=== PATIENT | female | born 1980 | race Caucasian/White ===

== ENCOUNTER 2016-08-09 08:45 | Emergency (ER) | payer OTHER ==
[2015-09-03 07:51] VITALS: BMI 23.7
[2016-08-09 09:18] LABS: BASOPHILS 0.1 % (0.0-2.0); EOSINOPHILS 0 % (0-7); HEMATOCRIT 35.1 % (36.0-48.0); HEMOGLOBIN 11.7 g/dL (12-16); IMMATURE GRANULOCYTES 0.5 % (0-5); LYMPHOCYTES 5.6 % (15-50); MCH 31.1 pg (26.0-34.0); MCHC 33.3 g/dL (31.0-37.0); MCV 93.4 fL (80.0-100.0); MEAN PLATELET VOLUME 10.6 fL (7.4-10.4); MONOCYTES 2.1 % (2-11); NEUTROPHILS 91.7 % (40-80); PLATELET COUNT 233 10x3/uL (130-400); RBC 3.76 10x6/uL (4.00-5.40); WBC 18.4 10x3/uL (4.8-10.8)
[2016-08-09 09:42] LABS: ALBUMIN 3.7 g/dL (3.4-5.0); ALKALINE PHOSPHATASE 52 U/L (46-116); ALT (SGPT) 20 U/L (10-68); CALC OSMOLALITY 272 mosm/kg (275-300); CALCIUM 8.5 mg/dL (8.5-10.1); CARBON DIOXIDE 21.4 mmol/L (21.0-32.0); CHLORIDE - SERUM 100 mmol/L (98-107); CREATININE - SERUM 0.7 mg/dL (0.6-1.3); GLUCOSE 172 mg/dL (74-106); POTASSIUM - SERUM 3.3 mmol/L (3.5-5.1); SODIUM 135 mmol/L (136-145); UREA NITROGEN 9 mg/dL (7-18); eGFR NON AFRICAN AMERICAN > 90 mL/min (90-120)
[2016-08-09 09:46] LABS: APPEARANCE SLT CLOUDY (CLEAR); COLOR YELLOW (YELLOW); SPECIFIC GRAVITY 1.025 (1.005-1.020)
[2016-08-09 09:47] LABS: BACTERIA MODERATE /hpf (NONE SEEN); BILIRUBIN NEGATIVE (NEGATIVE); GLUCOSE 1000 mg/dL (NEGATIVE); KETONE LARGE mg/dL (NEGATIVE); LEUKOCYTE ESTERASE TRACE (NEGATIVE); MUCUS <1+ /lpf (NONE SEEN); NITRITE NEGATIVE (NEGATIVE); PROTEIN TRACE mg/dL (NEGATIVE); RED CELLS - URINE 0-5 /hpf (0-5); UROBILINOGEN NORMAL (NORMAL); WHITE CELLS - URINE 0-5 /hpf (0-5)
== END 2016-08-09 13:36 | disposition home or self-care (01) ==
LOC: D.ER 08:45
PROVIDERS: Emergency Medicine
DX: R11.10 Vomiting, unspecified (principal); G43.A0 Cyclical vomiting, in migraine, not intractable; Z3A.09 9 weeks gestation of pregnancy

== ENCOUNTER 2016-08-09 14:16 | Inpatient (IN) | payer OTHER ==
[~2016-08-09] VITALS: Ht 162.6 cm; Wt 59.9 kg
[2016-08-09 15:55] LABS: APPEARANCE CLEAR (CLEAR); BILIRUBIN NEGATIVE (NEGATIVE); COLOR YELLOW (YELLOW); GLUCOSE 1000 mg/dL (NEGATIVE); KETONE LARGE mg/dL (NEGATIVE); LEUKOCYTE ESTERASE NEGATIVE (NEGATIVE); NITRITE NEGATIVE (NEGATIVE); PROTEIN TRACE mg/dL (NEGATIVE); SPECIFIC GRAVITY 1.025 (1.005-1.020); UROBILINOGEN NORMAL (NORMAL)
[2016-08-09 16:03] LABS: BACTERIA FEW /hpf (NONE SEEN); EPITHELIAL CELLS 0-5 /hpf (0-5); RED CELLS - URINE 0-5 /hpf (0-5); WHITE CELLS - URINE 0-5 /hpf (0-5)
--- NOTE | 2016-08-09 16:25 | NUR ---
PT LYING SUPINE IN BED. EYES CLOSED. RESP NON-LABORED. PT NOT DISTURBED TO ALLOW FOR REST. SR UP X 2. CALL LIGHT IN REACH. SO IN ROOM WITH PT.
[2016-08-09 19:17] LABS: BASOPHILS 0.1 % (0.0-2.0); EOSINOPHILS 0 % (0-7); HEMOGLOBIN 10.4 g/dL (12-16); IMMATURE GRANULOCYTES 0.4 % (0-5); LYMPHOCYTES 8.7 % (15-50); MCH 31.7 pg (26.0-34.0); MCHC 33.5 g/dL (31.0-37.0); MCV 94.5 fL (80.0-100.0); MEAN PLATELET VOLUME 10.5 fL (7.4-10.4); MONOCYTES 7.8 % (2-11); RBC 3.28 10x6/uL (4.00-5.40); RDW 13.2 % (11.5-14.5); WBC 14.3 10x3/uL (4.8-10.8)
[2016-08-09 19:18] LABS: PLATELET COUNT 186 10x3/uL (130-400)
[2016-08-10 07:04] LABS: BASOPHILS 0.1 % (0.0-2.0); EOSINOPHILS 0 % (0-7); HEMATOCRIT 32.4 % (36.0-48.0); HEMOGLOBIN 10.9 g/dL (12-16); IMMATURE GRANULOCYTES 0.5 % (0-5); MCH 31.8 pg (26.0-34.0); MCHC 33.6 g/dL (31.0-37.0); MCV 94.5 fL (80.0-100.0); MEAN PLATELET VOLUME 10.5 fL (7.4-10.4); MONOCYTES 10.2 % (2-11); NEUTROPHILS 75.2 % (40-80); PLATELET COUNT 181 10x3/uL (130-400); RBC 3.43 10x6/uL (4.00-5.40); RDW 13.2 % (11.5-14.5); WBC 15.3 10x3/uL (4.8-10.8)
[2016-08-10 07:37] LABS: ALBUMIN 3.3 g/dL (3.4-5.0); ALKALINE PHOSPHATASE 40 U/L (46-116); ALT (SGPT) 19 U/L (10-68); CALCIUM 7.6 mg/dL (8.5-10.1); CARBON DIOXIDE 22.2 mmol/L (21.0-32.0); CHLORIDE - SERUM 103 mmol/L (98-107); CREATININE - SERUM 0.6 mg/dL (0.6-1.3); POTASSIUM - SERUM 3.1 mmol/L (3.5-5.1); PROTEIN - SERUM 6.1 g/dL (6.4-8.2); SODIUM 136 mmol/L (136-145); eGFR NON AFRICAN AMERICAN > 90 mL/min (90-120)
[2016-08-10 07:38] LABS: CALC OSMOLALITY 269 mosm/kg (275-300); GLUCOSE 111 mg/dL (74-106); UREA NITROGEN 4 mg/dL (7-18)
[2016-08-10 11:23] VITALS: BP 134/87; BMI 22.7
--- NOTE | 2016-08-10 11:36 | NUR ---
PT IS LYING IN BED. AT BEDSIDE. BED IS LOW, SIDE RAILS UP X 2 AND CALL LIGHT IN REACH. PT REQUEST SOME ICE CHIPS. NAUSEA IS UNDER CONTROL AT THIS TIME. CHANGE OUT IV D5 NS @ 125 CC/ HR. PT HAS NO OTHER REQUEST.
--- NOTE | 2016-08-10 12:45 | NUR ---
PT WAS TRANSFERRED FROM [facility] TO [facility]. BED IS LOW. CALL LIGHT IN REACH AND SIDE RAILS UP X 2. PT OFFERS NO COMPLAINTS.
--- NOTE | 2016-08-10 13:00 | NUR ---
PT REQUESTED MEDICINE FOR NAUSEA. ZOFRAN GIVEN. SHE IS BEGINNING TO GET NAUSEATED. PT HAS BEEN DRINKING FLUIDS AND TOLERATING THEM.
--- NOTE | 2016-08-10 13:34 | NUR ---
PT IS UP TO THE SHOWER. TOLERATED WELL. MADE HER SOME ICED TEA. PT BACK TO BED. ZOFRAN SEEMED TO HELP.
--- NOTE | 2016-08-10 13:58 | NUR ---
PT IS LYING IN BED. SLEEPING. AT BEDSIDE.
--- NOTE | 2016-08-10 15:15 | NUR ---
PT IS BACK IN THE SHOWER AGAIN. HER STATES THAT SHE LOVES HER SHOWERS. THIS IS HER 3RD ONE TODAY.
--- NOTE | 2016-08-10 15:26 | NUR ---
DR RAVI HERE TO CONSULT ON PT. PT REQUESTED COMPAZINE. GIVEN TO HER. HAS NO OTHER REQUEST. BED IS LOW, CALL LIGHT IN REACH AND SIDE RAILS UP X 2.
--- NOTE | 2016-08-10 17:45 | NUR ---
PT REQUESTED COMPAZINE. GIVEN.
--- NOTE | 2016-08-10 17:57 | NUR ---
PT IS BACK IN THE SHOWER. HE IV INPUT OF D5 NS IS [id number].
[2016-08-10 19:20] VITALS: BP 143/79
--- NOTE | 2016-08-10 19:20 | NUR ---
IN THE BATHROOM DURING INITIAL ROUNDS. BACK IN BED. INTRODUCED SELF. V/S TAKEN. ASSESSMENT DONE. STATUS HYPEREMESIS GRAVIDARUM @ 13 WEEKS. IVF D5NS TO R HAND. IV SITE OK.
--- NOTE | 2016-08-10 21:04 | NUR ---
PEPCID 40mg IVP GIVEN ORDERED. SEE E-MAR.
--- NOTE | 2016-08-10 21:19 | NUR ---
ZOFRAN 4mg IV GIVEN ORDERED PRN FOR NAUSEA.
--- NOTE | 2016-08-10 21:55 | NUR ---
K-DUR 20mg / COMPAZINE 10mg PO GIVEN. SEE E-MAR.
--- NOTE | 2016-08-10 22:49 | NUR ---
EYES CLOSED DURING ROUNDS. LEFT UNDISTURBED.
--- NOTE | 2016-08-11 00:30 | NUR ---
APPEARS TO BE ASLEEP.
--- NOTE | 2016-08-11 01:40 | NUR ---
CALL LIGHT ANSWERED. ZOFRAN 4mg IV GIVEN. V/S STABLE.
[2016-08-11 01:53] VITALS: BP 130/74
--- NOTE | 2016-08-11 02:34 | NUR ---
IV BAG CHANGED.
--- NOTE | 2016-08-11 04:30 | NUR ---
EYES CLOSED. LEFT UNDISTURBED.
--- NOTE | 2016-08-11 06:30 | NUR ---
SLEPT FAIRLY WELL DURING THE NIGHT. CONTINUING PLAN OF CARE. NO EMESIS DURING THE NIGHT.
--- NOTE | 2016-08-11 07:20 | NUR ---
PT IS RECEIVED LYING IN BED THIS AM. SHE STATES THAT SHE IS FEELING MUCH BETTER TODAY. SHE HAS NOT HAD ANY VOMITING YESTERDAY OR THIS AM. SHE IS TOLERATING CLEAR LIQUIDS. VSS. PAIN IS A 0/10. GEN- AWAKE AND ALERT. LUNGS- CLEAR. HEART- RRR. ABD- SOFT, NT. BS +. EXT- NO EDEMA NOTED. BED IS LOW, CALL LIGHT IN REACH AND SIDE RAILS UP X 2.
[2016-08-11 07:45] LABS: BASOPHILS 0.2 % (0.0-2.0); EOSINOPHILS 0.5 % (0-7); HEMATOCRIT 30.6 % (36.0-48.0); HEMOGLOBIN 10.1 g/dL (12-16); IMMATURE GRANULOCYTES 0.5 % (0-5); LYMPHOCYTES 32.4 % (15-50); MCH 31.4 pg (26.0-34.0); MEAN PLATELET VOLUME 10.8 fL (7.4-10.4); MONOCYTES 11.6 % (2-11); NEUTROPHILS 54.8 % (40-80); PLATELET COUNT 170 10x3/uL (130-400); RBC 3.22 10x6/uL (4.00-5.40); RDW 13.3 % (11.5-14.5)
[2016-08-11 07:57] LABS: WBC 8.7 10x3/uL (4.8-10.8)
[2016-08-11 08:05] LABS: ALBUMIN 3.2 g/dL (3.4-5.0); ALKALINE PHOSPHATASE 39 U/L (46-116); CALC OSMOLALITY 267 mosm/kg (275-300); CALCIUM 7.7 mg/dL (8.5-10.1); CARBON DIOXIDE 22.8 mmol/L (21.0-32.0); CHLORIDE - SERUM 105 mmol/L (98-107); CREATININE - SERUM 0.5 mg/dL (0.6-1.3); GLUCOSE 83 mg/dL (74-106); PROTEIN - SERUM 5.5 g/dL (6.4-8.2); SODIUM 136 mmol/L (136-145); UREA NITROGEN 3 mg/dL (7-18); eGFR NON AFRICAN AMERICAN > 90 mL/min (90-120)
[2016-08-11 08:06] LABS: ALT (SGPT) 48 U/L (10-68)
--- NOTE | 2016-08-11 08:55 | NUR ---
PT REQUESTED ZOFRAN. GIVEN
--- NOTE | 2016-08-11 09:30 | NUR ---
PT GOT UP TO GO TO THE BATHROOM. AND ACCIDENTLY HAD A LOOSE STOOL. PT GOT IN SHOWER AND GOWN AND PANTIES CHANGED.
--- NOTE | 2016-08-11 10:14 | NUR ---
PT WAS GIVEN HER PEPCID AND KDUR. PT WOULD LIKE TO TRY TO GET AN EARLY LUNCH IF SHE CAN BECAUSE SHE WOULD LIKE TO GO HOME AROUND LUNCH IF SHE CAN.
--- NOTE | 2016-08-11 10:48 | NUR ---
CALLED THE [facility] AND REQUESTED AN EARLY TRAY FOR HER. SHE WOULD LIKE TO GET OUT OF HERE EARLY. THEY WILL BRING HER A TRAY AT 11:00. SALINE LOCKED HER IV R HAND. AT BEDSIDE.
[2016-08-11 10:56] VITALS: Ht 162.6 cm; Wt 59.9 kg
--- NOTE | 2016-08-11 12:10 | NUR ---
PT WAS SERVED LUNCH AT ABOUT 11:00. SHE HAS TOLERATED WELL. CALLED DR THOMPSON. HE OK'S HER FOR DISCHARGE.
[2016-08-11] MEDS ORDERED: K-DUR20 MEQ PO (12:22)
[2016-08-11] MEDS ORDERED: PROTONIX20 MG PO (12:22)
[2016-08-11] MEDS ORDERED: ZOFRAN ODT4 MG/UDTAB PO (12:22)
[2016-08-11] MEDS ORDERED: COMPAZINE5 MG PO (12:23)
--- NOTE | 2016-08-11 12:51 | NUR ---
PT IS DISCHARGED HOME. PT REQUEST TO WALK TO THE FRONT ENTRANCE TO HER CAR. I WALKED WITH HER PT AND TO THEIR CAR.
== END 2016-08-11 12:54 | disposition home or self-care (01) | DRG 781 ==
LOC: D.LDO 14:16 → D.LD 14:17 → D.LDO 08-10 → D.LD 08-10 → D.WS 08-10 13:56 → D.LD 08-10 13:56 → D.WS 08-10 13:57 → D.LDO 08-10 13:57 → D.WS 08-10 13:57 → D.LDO 08-10 14:16 → D.LD 08-11 12:54 → D.WS 08-11 12:54 → D.LDO 08-11 13:36 → D.LD 08-11 13:36 → EDSTATUS 08-11 15:07
PROVIDERS: ADMIT Obstetrics & Gynecology
DX: O21.0 Mild hyperemesis gravidarum (principal); O99.321 Drug use complicating pregnancy, first trimester; Z3A.13 13 weeks gestation of pregnancy; G43.A0 Cyclical vomiting, in migraine, not intractable; O99.011 Anemia complicating pregnancy, first trimester; K29.70 Gastritis, unspecified, without bleeding; K20.9 Esophagitis, unspecified; D72.0 Genetic anomalies of leukocytes; O26.891 Other specified pregnancy related conditions, first trimester; F12.90 Cannabis use, unspecified, uncomplicated; O99.331 Smoking (tobacco) complicating pregnancy, first trimester

== ENCOUNTER 2016-09-28 06:06 | Emergency (ER) | payer OTHER ==
[2016-08-11 10:56] VITALS: BMI 22.6
[~2016-09-28 06:06] MED LIST: COMPAZINE5 MG PO; K-DUR20 MEQ PO; PROTONIX20 MG PO; ZOFRAN ODT4 MG/UDTAB PO
== END 2016-09-28 10:39 | disposition home or self-care (01) ==
LOC: D.ER 06:06
DX: R11.10 Vomiting, unspecified (principal); F17.200 Nicotine dependence, unspecified, uncomplicated

== ENCOUNTER → 2016-10-24 11:43 | Outpatient (CLI) | payer OTHER ==
[2016-08-11 10:56] VITALS: BMI 22.6
== END | disposition home or self-care (01) ==
LOC: D.US 11:43
DX: R93.8 Abnormal findings on diagnostic imaging of other specified body structures (principal)

== ENCOUNTER 2016-10-30 07:49 | Emergency (ER) | payer OTHER ==
[2016-08-11 10:56] VITALS: BMI 22.6
[2016-10-30 08:08] LABS: APPEARANCE CLEAR (CLEAR); BILIRUBIN NEGATIVE (NEGATIVE); COLOR YELLOW (YELLOW); GLUCOSE 500 mg/dL (NEGATIVE); KETONE LARGE mg/dL (NEGATIVE); LEUKOCYTE ESTERASE NEGATIVE (NEGATIVE); NITRITE NEGATIVE (NEGATIVE); PROTEIN TRACE mg/dL (NEGATIVE); RED CELLS - URINE 0-5 /hpf (0-5); SPECIFIC GRAVITY 1.015 (1.005-1.020); UROBILINOGEN NORMAL (NORMAL); WHITE CELLS - URINE NSEEN /hpf (0-5)
[2016-10-30 08:21] LABS: BASOPHILS 0.2 % (0.0-2.0); EOSINOPHILS 0 % (0-7); HEMATOCRIT 34.2 % (36.0-48.0); HEMOGLOBIN 11.5 g/dL (12-16); IMMATURE GRANULOCYTES 1.8 % (0-5); LYMPHOCYTES 7.1 % (15-50); MCH 31.5 pg (26.0-34.0); MCHC 33.6 g/dL (31.0-37.0); MCV 93.7 fL (80.0-100.0); MEAN PLATELET VOLUME 10.7 fL (7.4-10.4); MONOCYTES 2.8 % (2-11); NEUTROPHILS 88.1 % (40-80); RBC 3.65 10x6/uL (4.00-5.40); RDW 13.1 % (11.5-14.5); WBC 19.8 10x3/uL (4.8-10.8)
[2016-10-30 08:24] LABS: PLATELET COUNT 241 10x3/uL (130-400)
[2016-10-30 08:39] LABS: ALBUMIN 3.2 g/dL (3.4-5.0); ALKALINE PHOSPHATASE 78 U/L (46-116); ALT (SGPT) 17 U/L (10-68); AMYLASE - SERUM 43 U/L (25-115); CALC OSMOLALITY 274 mosm/kg (275-300); CALCIUM 8.7 mg/dL (8.5-10.1); CARBON DIOXIDE 23.1 mmol/L (21.0-32.0); CHLORIDE - SERUM 101 mmol/L (98-107); CREATININE - SERUM 0.6 mg/dL (0.6-1.3); LIPASE 99 U/L (73-393); POTASSIUM - SERUM 3.4 mmol/L (3.5-5.1); PROTEIN - SERUM 6.6 g/dL (6.4-8.2); SODIUM 137 mmol/L (136-145); UREA NITROGEN 8 mg/dL (7-18); eGFR NON AFRICAN AMERICAN > 90 mL/min (90-120)
[2016-10-30 08:41] LABS: GLUCOSE 157 mg/dL (74-106)
== END 2016-10-30 10:25 | disposition home or self-care (01) ==
LOC: D.ER 07:49
PROVIDERS: Emergency Medicine
DX: O21.9 Vomiting of pregnancy, unspecified (principal); F17.200 Nicotine dependence, unspecified, uncomplicated

== ENCOUNTER 2016-12-11 11:10 | Emergency (ER) | payer OTHER ==
[2016-08-11 10:56] VITALS: BMI 22.6
[2016-12-11 11:33] LABS: BASOPHILS 0.2 % (0-2); EOSINOPHILS 0.1 % (0-7); HEMATOCRIT 35.9 % (36.0-48.0); HEMOGLOBIN 12.1 g/dL (12-16); IMMATURE GRANULOCYTES 1.4 % (0-5); LYMPHOCYTES 8.3 % (15-50); MCH 32.1 pg (26.0-34.0); MCHC 33.7 g/dL (31.0-37.0); MCV 95.2 fL (80.0-100.0); MEAN PLATELET VOLUME 11.6 fL (7.4-10.4); PLATELET COUNT 202 10x3/uL (130-400); RBC 3.77 10x6/uL (4.00-5.40); RDW 13.8 % (11.5-14.5); WBC 19.1 10x3/uL (4.8-10.8)
[2016-12-11 11:48] LABS: ALBUMIN 3.2 g/dL (3.4-5.0); ALKALINE PHOSPHATASE 138 U/L (46-116); ALT (SGPT) 17 U/L (10-68); AMYLASE - SERUM 43 U/L (25-115); BILIRUBIN - TOTAL 0.28 mg/dL (0.2-1.3); CALC OSMOLALITY 266 mosm/kg (275-300); CALCIUM 9.2 mg/dL (8.5-10.1); CARBON DIOXIDE 23.5 mmol/L (21.0-32.0); CHLORIDE - SERUM 97 mmol/L (98-107); CREATININE - SERUM 0.8 mg/dL (0.6-1.3); GLUCOSE 128 mg/dL (74-106); LIPASE 99 U/L (73-393); POTASSIUM - SERUM 3.7 mmol/L (3.5-5.1); PROTEIN - SERUM 6.9 g/dL (6.4-8.2); SODIUM 133 mmol/L (136-145); UREA NITROGEN 9 mg/dL (7-18); eGFR NON AFRICAN AMERICAN 85 mL/min (90-120)
[2016-12-11 14:09] LABS: APPEARANCE HAZY (CLEAR); BACTERIA MODERATE /hpf (NONE SEEN); BILIRUBIN NEGATIVE (NEGATIVE); COLOR YELLOW (YELLOW); EPITHELIAL CELLS 0-5 /hpf (0-5); GLUCOSE 100 mg/dL (NEGATIVE); KETONE LARGE mg/dL (NEGATIVE); LEUKOCYTE ESTERASE NEGATIVE (NEGATIVE); MUCUS >1+ /lpf (NONE SEEN); NITRITE NEGATIVE (NEGATIVE); PROTEIN TRACE mg/dL (NEGATIVE); RED CELLS - URINE 0-5 /hpf (0-5); UROBILINOGEN NORMAL (NORMAL); WHITE CELLS - URINE RARE /hpf (0-5)
== END 2016-12-11 16:13 | disposition home or self-care (01) ==
LOC: D.ER 11:10
PROVIDERS: Emergency Medicine
DX: O21.2 Late vomiting of pregnancy (principal); Z3A.32 32 weeks gestation of pregnancy; E86.0 Dehydration

== ENCOUNTER 2017-01-05 12:15 | Emergency (ER) | payer OTHER ==
[2016-08-11 10:56] VITALS: BMI 22.6
[2017-01-05 12:56] LABS: BASOPHILS 0.1 % (0-2); EOSINOPHILS 0.1 % (0-7); HEMATOCRIT 38.1 % (36.0-48.0); IMMATURE GRANULOCYTES 0.9 % (0-5); LYMPHOCYTES 12.6 % (15-50); MCH 32.2 pg (26.0-34.0); MCHC 34.1 g/dL (31.0-37.0); MCV 94.3 fL (80.0-100.0); MEAN PLATELET VOLUME 12.3 fL (7.4-10.4); MONOCYTES 5.4 % (2-11); NEUTROPHILS 80.9 % (40-80); PLATELET COUNT 192 10x3/uL (130-400); RBC 4.04 10x6/uL (4.00-5.40); RDW 13.9 % (11.5-14.5)
[2017-01-05 13:14] LABS: APTT 22.2 SECONDS (22.8-39.4); INR 0.87 (0.85-1.17); PROTIME 11.6 SECONDS (11.6-15.0)
[2017-01-05 13:54] LABS: APPEARANCE HAZY (CLEAR); BILIRUBIN NEGATIVE (NEGATIVE); COLOR YELLOW (YELLOW); GLUCOSE NEGATIVE (NEGATIVE); KETONE LARGE mg/dL (NEGATIVE); LEUKOCYTE ESTERASE NEGATIVE (NEGATIVE); NITRITE NEGATIVE (NEGATIVE); PROTEIN 1+ mg/dL (NEGATIVE); UROBILINOGEN NORMAL (NORMAL)
[2017-01-05 13:56] LABS: BACTERIA FEW /hpf (NONE SEEN); RED CELLS - URINE >50 /hpf (0-5); WHITE CELLS - URINE 0-5 /hpf (0-5)
[2017-01-05 13:58] LABS: ALKALINE PHOSPHATASE 182 U/L (46-116); ALT (SGPT) 16 U/L (10-68); BILIRUBIN - TOTAL 0.28 mg/dL (0.2-1.3); CALC OSMOLALITY 270 mosm/kg (275-300); CALCIUM 8.9 mg/dL (8.5-10.1); CARBON DIOXIDE 19.9 mmol/L (21.0-32.0); CHLORIDE - SERUM 102 mmol/L (98-107); CREATININE - SERUM 0.6 mg/dL (0.6-1.3); GLUCOSE 111 mg/dL (74-106); POTASSIUM - SERUM 3.8 mmol/L (3.5-5.1); PROTEIN - SERUM 6.6 g/dL (6.4-8.2); SODIUM 136 mmol/L (136-145); UREA NITROGEN 6 mg/dL (7-18); eGFR NON AFRICAN AMERICAN > 90 mL/min (90-120)
== END 2017-01-05 17:09 | disposition home or self-care (01) ==
LOC: D.ER 12:15
PROVIDERS: Emergency Medicine
DX: O21.0 Mild hyperemesis gravidarum (principal); Z3A.34 34 weeks gestation of pregnancy

== ENCOUNTER 2017-06-13 07:46 | Emergency (ER) | payer OTHER ==
[2016-08-11 10:56] VITALS: BMI 22.6
[2017-06-13 08:46] LABS: BASOPHILS 0.2 % (0-2); EOSINOPHILS 0 % (0-7); HEMATOCRIT 39.3 % (36.0-48.0); HEMOGLOBIN 13.2 g/dL (12-16); IMMATURE GRANULOCYTES 0.7 % (0-5); LYMPHOCYTES 10.1 % (15-50); MCH 31.3 pg (26.0-34.0); MCHC 33.6 g/dL (31.0-37.0); MCV 93.1 fL (80.0-100.0); MEAN PLATELET VOLUME 10.8 fL (7.4-10.4); RBC 4.22 10x6/uL (4.00-5.40); RDW 13.8 % (11.5-14.5); WBC 11.6 10x3/uL (4.8-10.8)
[2017-06-13 08:47] LABS: PLATELET COUNT 231 10x3/uL (130-400)
[2017-06-13 09:11] LABS: ALBUMIN 4.5 g/dL (3.4-5.0); ALKALINE PHOSPHATASE 107 U/L (46-116); ALT (SGPT) 19 U/L (10-68); BILIRUBIN - TOTAL 0.33 mg/dL (0.2-1.3); CALC OSMOLALITY 284 mosm/kg (275-300); CALCIUM 9.6 mg/dL (8.5-10.1); CARBON DIOXIDE 19.2 mmol/L (21.0-32.0); CHLORIDE - SERUM 106 mmol/L (98-107); CREATININE - SERUM 0.8 mg/dL (0.6-1.3); POTASSIUM - SERUM 4.4 mmol/L (3.5-5.1); PROTEIN - SERUM 7.3 g/dL (6.4-8.2); SODIUM 140 mmol/L (136-145); UREA NITROGEN 14 mg/dL (7-18); eGFR NON AFRICAN AMERICAN 85 mL/min (90-120)
[2017-06-13 09:16] LABS: GLUCOSE 183 mg/dL (74-106)
== END 2017-06-13 10:50 | disposition home or self-care (01) ==
LOC: D.ER 07:46
PROVIDERS: Emergency Medicine
DX: G43.A0 Cyclical vomiting, in migraine, not intractable (principal); F17.200 Nicotine dependence, unspecified, uncomplicated

== ENCOUNTER 2018-03-01 05:57 | Inpatient (IN) | payer OTHER ==
[~2018-03-01] VITALS: Ht 162.6 cm; Wt 59.0 kg
[2018-03-01 07:37] LABS: BASOPHILS 0.1 % (0-2); EOSINOPHILS 0 % (0-7); HEMATOCRIT 39.8 % (36.0-48.0); HEMOGLOBIN 13.7 g/dL (12-16); IMMATURE GRANULOCYTES 0.5 % (0-5); MCH 31.8 pg (26.0-34.0); MCHC 34.4 g/dL (31.0-37.0); MCV 92.3 fL (80.0-100.0); MEAN PLATELET VOLUME 10.9 fL (7.4-10.4); MONOCYTES 5.8 % (2-11); NEUTROPHILS 85.6 % (40-80); PLATELET COUNT 209 10x3/uL (130-400); RBC 4.31 10x6/uL (4.00-5.40); RDW 12.9 % (11.5-14.5)
[2018-03-01 07:54] LABS: HCG SERUM NEGATIVE (NEGATIVE)
[2018-03-01 08:00] VITALS: BP 152/84
[2018-03-01 08:35] LABS: ALBUMIN 4.3 g/dL (3.4-5.0); ANION GAP 17.8 mmol/L (8-16); BILIRUBIN - TOTAL 0.56 mg/dL (0.2-1.3); CALCIUM 9.4 mg/dL (8.5-10.1); CARBON DIOXIDE 23.2 mmol/L (21.0-32.0); CREATININE - SERUM 0.9 mg/dL (0.6-1.3); PROTEIN - SERUM 7.1 g/dL (6.4-8.2)
[2018-03-01 10:00] VITALS: BP 152/80
[2018-03-01 10:02] LABS: APPEARANCE CLEAR (CLEAR); BACTERIA FEW /hpf (NONE SEEN); BILIRUBIN NEGATIVE (NEGATIVE); COLOR STRAW (YELLOW); EPITHELIAL CELLS OCC /hpf (0-5); GLUCOSE 100 mg/dL (NEGATIVE); KETONE SMALL mg/dL (NEGATIVE); MUCUS <1+ /lpf (NONE SEEN); NITRITE NEGATIVE (NEGATIVE); PROTEIN NEGATIVE (NEGATIVE); RED CELLS - URINE 0-5 /hpf (0-5); SPECIFIC GRAVITY 1.005 (1.005-1.020); UROBILINOGEN NORMAL (NORMAL); WHITE CELLS - URINE RARE /hpf (0-5)
[2018-03-01 12:00] VITALS: BP 148/88
[2018-03-01] MEDS ORDERED: VALIUM5 MG PO (12:31)
[2018-03-01 13:45] VITALS: BMI 22.3
[2018-03-01 21:51] VITALS: BP 103/74
[2018-03-02 00:08] VITALS: BP 124/88
[2018-03-02 05:11] LABS: BASOPHILS 0.2 % (0-2); EOSINOPHILS 0.1 % (0-7); HEMOGLOBIN 11.1 g/dL (12-16); IMMATURE GRANULOCYTES 0.3 % (0-5); LYMPHOCYTES 28.5 % (15-50); MCH 31.3 pg (26.0-34.0); MCHC 33.6 g/dL (31.0-37.0); MEAN PLATELET VOLUME 10.6 fL (7.4-10.4); MONOCYTES 10.2 % (2-11); NEUTROPHILS 60.7 % (40-80); PLATELET COUNT 201 10x3/uL (130-400); RBC 3.55 10x6/uL (4.00-5.40); RDW 13.1 % (11.5-14.5)
[2018-03-02 05:19] LABS: WBC 9.6 10x3/uL (4.8-10.8)
[2018-03-02 05:53] LABS: ALBUMIN 3.5 g/dL (3.4-5.0); ALKALINE PHOSPHATASE 60 U/L (46-116); ALT (SGPT) 14 U/L (10-68); BILIRUBIN - TOTAL 0.42 mg/dL (0.2-1.3); CHLORIDE - SERUM 108 mmol/L (98-107); CREATININE - SERUM 0.7 mg/dL (0.6-1.3); PROTEIN - SERUM 5.9 g/dL (6.4-8.2); SODIUM 143 mmol/L (136-145); eGFR NON AFRICAN AMERICAN > 90 mL/min (90-120)
[2018-03-02 05:57] LABS: CALC OSMOLALITY 281 mosm/kg (275-300); GLUCOSE 97 mg/dL (74-106); POTASSIUM - SERUM 3.2 mmol/L (3.5-5.1); UREA NITROGEN 5 mg/dL (7-18)
[2018-03-02 06:19] VITALS: BP 137/92
[2018-03-02 08:09] VITALS: BP 104/70
[2018-03-02 12:16] VITALS: Ht 162.6 cm; Wt 59.0 kg
[2018-03-02 12:47] VITALS: BP 137/77
[2018-03-02] MEDS ORDERED: PROTONIX40 MG PO (15:34)
[2018-03-02 15:58] VITALS: BP 133/84
== END 2018-03-02 16:15 | disposition home or self-care (01) | DRG 392 ==
LOC: D.ER 05:57 → D.MS 10:27 → D.EDHOLD 10:27 → D.MS 11:30
PROVIDERS: Family Medicine; Internal Medicine Gastroenterology
PROC: 0DB78ZX Excision of Stomach, Pylorus, Via Natural or Artificial Opening Endoscopic, Diagnostic (ICD-10-PCS; principal; 2018-03-01 17:15)
DX: R11.2 Nausea with vomiting, unspecified (principal); K31.89 Other diseases of stomach and duodenum; F17.210 Nicotine dependence, cigarettes, uncomplicated; R19.7 Diarrhea, unspecified; K29.70 Gastritis, unspecified, without bleeding; K44.9 Diaphragmatic hernia without obstruction or gangrene